=== PATIENT | male | born 1995 | race African-American/Black ===

== ENCOUNTER 2019-03-14 13:08 | Emergency (ER) | payer OTHER ==
[~2019-03-14] VITALS: Ht 182.9 cm; Wt 101.6 kg
[2019-03-14 13:27] VITALS: Ht 182.9 cm; Wt 101.6 kg
[2019-03-14 17:25] VITALS: BP 131/84
== END 2019-03-14 17:25 | disposition home or self-care (01) ==
LOC: ED 13:08
DX: K08.89 Other specified disorders of teeth and supporting structures (principal)